=== PATIENT | female | born 1940 | race Caucasian/White ===

== ENCOUNTER → 2016-08-22 | Outpatient (CLI) | payer OTHER ==
--- NOTE | 2016-08-23 08:53 | DX ---
DEXA Bone Mineral Densitometry Clinical Indications: 75-year-old female who had a hysterectomy at age 49, at which time she went t hrough menopause. Her mother had osteoporosis, and the patient was treated with Fosamax between 1995 and 2007. She takes supplementary vitamin D and a multivitamin, and exercises by biking. Evaluate f or estrogen deficiency, and screen for osteoporosis. ICD 10 Diagnostic Code: Z13.820. Comparison: The patient does not remember where she had her prior DEXA scan. Technique: Bone Mineral Densitometry (BMD) by Dual Energy X-Ray Absorptiometry (DEXA) was performed utilizing the [employer] scanner. The lumbar spine was evaluated in the AP projection. Both hip s and the left forearm were evaluated in the AP projection. Vertebral fracture assessment was also p erformed. A FRAX score was calculated. AP Lumbar Spine: The L1, L2, L3 and L4 vertebral bodies were evaluated. BMD: 1.196 gm/cm2 T-score: 0.0 SD Z-score: 1.4 SD AP Left Hip: Femoral Neck BMD: 0.891 gm/cm2 T-score: -1.1 SD* Z-score: 0.7 SD AP Right Hip: Femoral Neck BMD: 0.920 gm/cm2 T-score: -0.8 SD Z-score: 0.9 SD AP Left Forearm, /: BMD: 0.776 gm/cm2 T-score: -1.1 SD* Z-score: 1.3 SD Vertebral Fracture Assessment: There is no significant fracture deformity. Fracture Score: The 10 year probability for any major osteoporotic fracture 16.1%, and for a hip fra cture 7.1%. Conclusion: Considering the lowest measured site, the patient is mildly osteopenic* (low bone minera l density).. Any bone loss in this patient is probably related to aging or estrogen deficiency. Recommendations: To prevent osteoporosis and to promote bone density, consider the following recommendations: 1. Pursue a regular regimen of weightbearing and muscle-strengthening exercises in order to reduce the risk of falls and fracture (as tolerated by the patient's general medical condition). 2. Ensure that total daily calcium intake is at least 1500 mg (diet plus supplements). 3. Check serum hydroxy vitamin D3 (normal >30ng/ml). 4. Ensure daily intake of vitamin D is 800 international units. 5. Consider follow up DEXA scan in two years to assess the rate of bone loss in this patient.
== END ==
LOC: BRMIMAGING 08:38
PROVIDERS: ATTEND Internal Medicine
DX: Z13.820 Encounter for screening for osteoporosis (principal); M85.80 Other specified disorders of bone density and structure, unspecified site; Z82.62 Family history of osteoporosis; Z90.710 Acquired absence of both cervix and uterus

== ENCOUNTER 2017-05-05 06:52 | Observation (INO) | payer OTHER ==
[2017-05-05] MEDS ORDERED: DIAZEPAM 5 MG TAB PO ONE (06:58)
[2017-05-05] MEDS ORDERED: NS 1,000 ML IV ONE (06:58)
[2017-05-05] MEDS ORDERED: BACITRACIN IRRIGATION/NS 50,000 UNITS/1,000 ML BTL IRR ONE (06:58)
[2017-05-05] MEDS ORDERED: diphenhydrAMINE 25 MG CAP PO ONE (06:58)
--- NOTE | 2017-05-05 07:20 | CPEKG ---
Heart Rate: 50 RR Interval: 1200 P-R Interval: 216 QRSD Interval: 144 QT Interval: 484 QTC Interval: 442 P [place]: 38 QRS [place]: -40 EKG Severity - ABNORMAL ECG - EKG Impression: SINUS BRADYCARDIA EKG Impression: ATRIAL PREMATURE COMPLEX EKG Impression: RBBB AND LAFB EKG Impression: PROBABLE LVH WITH SECONDARY REPOL ABNRM Electronically Signed By: Ravindra Jackson 05-May-2017 10:57:28
[2017-05-05 07:35] LABS: PLATELET COUNT 247 10^3/uL (150-400)
[2017-05-05 07:44] LABS: INR 2.23 (0.83-1.16); PROTIME(PATIENT) 24.9 SEC (12.0-15.0)
[2017-05-05] MEDS ORDERED: VANCOMYCIN HCL/NORMAL SALINE 250 ML IV SCH (08:00)
--- NOTE | 2017-05-05 09:35 | PDPROPOC ---
Sedation Plan of Care Sedation Plan of Care: vital signs stable, mental status noted, patient educated of risks, benefits, alternatives, patient can tolerate sedation ASA Classification: ASA 2 Planned drugs: fentanyl, midazolam Mallampati Score: Class 1 Mallampati Reference Image: Patient passed 3-3-2 rule?: Yes
--- NOTE | 2017-05-05 09:35 | PDGENHP ---
History and Physical History and Physical: No changes in the patient's status between yesterday and today. Risks and benefits of the procedure were discussed yesterday and today. INR noted to be elevated (in setting of mechanical aortic valve), and we would like to proceed with anticoagulation on board. Consents have been signed.
[2017-05-05] MEDS ORDERED: LIDOCAINE 1% 300 MG/30 ML SDV ONE (09:42)
[2017-05-05] MEDS ORDERED: MIDAZOLAM 2 MG/2 ML VIAL ONE ×4 (09:43→11:18)
[2017-05-05] MEDS ORDERED: fentaNYL 100 MCG/2 ML INJ ONE ×2 (09:43→11:52)
[2017-05-05] MEDS ORDERED: LIDO/EPI 1% **for epidural** 30 ML SDV ONE ×2 (09:43→11:46)
[2017-05-05] MEDS ORDERED: BUPIVACAINE 0.5% 30 ML SDV ONE (09:44)
--- NOTE | 2017-05-05 14:07 | EPPROC ---
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 Hence it was decided to place dual chamber pacemaker. PROCEDURE NOTE: Patient presented to the cardiac catheterization laboratory in a fasting, post absorptive state. Cardiac geophysical laboratory chief nurse administered moderate sedation. The left infraclavicular area was prepped and draped in the usual sterile fashion. Lidocaine plus bupivacaine was used for local anesthesia. Left subclavian venography was performed by injection of iodinated contrast into the left antecubital vein. This was done to assure patency of the vein and also to assess for any anatomical aberrations. Dr Dupree attempted left subclavian acces but due to anatomic variation it could not be located and subclavian access was not obtainable. Using a combination of blunt and sharp dissection and electrocautery, the dissection was carried down to the prepectoral fascia. All bleeding was controlled with electrocautery. Fluoroscopy was utilized during the entire procedure for venous access and placement of the leads. Using the usual technique, left cephalic vein was accessed and a glidewire was placed. Through this initially a long 8F and later a long 7F sheath was passed. Placement of the guidewires into the venous system was confirmed by low -pressure blood return and also by visualizing the guidewires advancing into the inferior vena cava. A purse string suture was applied around the guidewires. An active fixation ventricular lead was advanced into the right ventricular apex and screwed in place. An active fixation atrial lead was advanced into the right atrial appendage and screwed in place. The peel away sheaths were removed. Pacing thresholds, sensing parameters and lead impedances were measured. There was no diaphragmatic stimulation at maximum output. The leads were sutured to the prepectoral fascia with 3 nonabsorbable sutures each. The pocket was created and it was flushed using antibiotic solution. It was inspected for any bleeding. The leads were attached to the pacemaker securely. The pacemaker was inserted into the pocket and secured in place with a nonabsorbable suture. Fluoroscopy was performed in [place] and [place] planes to verify right-sided placement of the leads. Also fluoroscopy of the pacemaker pocket was performed. The pacemaker pocket was closed in 3 layers with absorbable vicryl sutures. Steristrips were placed. Appropriate dressing was applied. The patient left the cardiac catheterization laboratory in stable condition. Serial Numbers: Device: St Louie Assurity MRI SN [id number] Atrial Lead: St Louie 8TC SN [id number] Ventricular Lead: [employer] Louie 8TC SN [id number] Stimulation Thresholds & Impedance Measurements: Atrial Lead 2.2mV, 0.4@0.5ms, 415Ohms Ventricular Lead 8.2mV, 0.5@0.5ms, 700Ohms Bhargav Pacing Parameters Pacing mode: DDD Lower rate: 60 Upper tracking rate: 130 Upper sensor rate: 130
--- NOTE | 2017-05-05 14:07 | EPPROC ---
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 Hence it was decided to place dual chamber pacemaker. PROCEDURE NOTE: Patient presented to the cardiac catheterization laboratory in a fasting, post absorptive state. Cardiac lab director nurse administered moderate sedation. The left infraclavicular area was prepped and draped in the usual sterile fashion. Lidocaine plus bupivacaine was used for local anesthesia. Left subclavian venography was performed by injection of iodinated contrast into the left antecubital vein. This was done to assure patency of the vein and also to assess for any anatomical aberrations. Dr Dupree attempted left subclavian acces but due to anatomic variation it could not be located and subclavian access was not obtainable. Using a combination of blunt and sharp dissection and electrocautery, the dissection was carried down to the prepectoral fascia. All bleeding was controlled with electrocautery. Fluoroscopy was utilized during the entire procedure for venous access and placement of the leads. Using the usual technique, left cephalic vein was accessed and a glidewire was placed. Through this initially a long 8F and later a long 7F sheath was passed. Placement of the guidewires into the venous system was confirmed by low -pressure blood return and also by visualizing the guidewires advancing into the inferior vena cava. A purse string suture was applied around the guidewires. An active fixation ventricular lead was advanced into the right ventricular apex and screwed in place. An active fixation atrial lead was advanced into the right atrial appendage and screwed in place. The peel away sheaths were removed. Pacing thresholds, sensing parameters and lead impedances were measured. There was no diaphragmatic stimulation at maximum output. The leads were sutured to the prepectoral fascia with 3 nonabsorbable sutures each. The pocket was created and it was flushed using antibiotic solution. It was inspected for any bleeding. The leads were attached to the pacemaker securely. The pacemaker was inserted into the pocket and secured in place with a nonabsorbable suture. Fluoroscopy was performed in [place] and [place] planes to verify right-sided placement of the leads. Also fluoroscopy of the pacemaker pocket was performed. The pacemaker pocket was closed in 3 layers with absorbable vicryl sutures. Steristrips were placed. Appropriate dressing was applied. The patient left the cardiac catheterization laboratory in stable condition. Serial Numbers: Device: St Louie Assurity MRI SN [id number] Atrial Lead: St Louie 8TC SN [id number] Ventricular Lead: [employer] Louie 8TC SN [id number] Stimulation Thresholds & Impedance Measurements: Atrial Lead 2.2mV, 0.4@0.5ms, 415Ohms Ventricular Lead 8.2mV, 0.5@0.5ms, 700Ohms Bhargav Pacing Parameters Pacing mode: DDD Lower rate: 60 Upper tracking rate: 130 Upper sensor rate: 130
--- NOTE | 2017-05-05 14:07 | EPPROC ---
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 Hence it was decided to place dual chamber pacemaker. PROCEDURE NOTE: Patient presented to the cardiac catheterization laboratory in a fasting, post absorptive state. Cardiac chemical laboratory assistant nurse administered moderate sedation. The left infraclavicular area was prepped and draped in the usual sterile fashion. Lidocaine plus bupivacaine was used for local anesthesia. Left subclavian venography was performed by injection of iodinated contrast into the left antecubital vein. This was done to assure patency of the vein and also to assess for any anatomical aberrations. Dr Dupree attempted left subclavian acces but due to anatomic variation it could not be located and subclavian access was not obtainable. Using a combination of blunt and sharp dissection and electrocautery, the dissection was carried down to the prepectoral fascia. All bleeding was controlled with electrocautery. Fluoroscopy was utilized during the entire procedure for venous access and placement of the leads. Using the usual technique, left cephalic vein was accessed and a glidewire was placed. Through this initially a long 8F and later a long 7F sheath was passed. Placement of the guidewires into the venous system was confirmed by low -pressure blood return and also by visualizing the guidewires advancing into the inferior vena cava. A purse string suture was applied around the guidewires. An active fixation ventricular lead was advanced into the right ventricular apex and screwed in place. An active fixation atrial lead was advanced into the right atrial appendage and screwed in place. The peel away sheaths were removed. Pacing thresholds, sensing parameters and lead impedances were measured. There was no diaphragmatic stimulation at maximum output. The leads were sutured to the prepectoral fascia with 3 nonabsorbable sutures each. The pocket was created and it was flushed using antibiotic solution. It was inspected for any bleeding. The leads were attached to the pacemaker securely. The pacemaker was inserted into the pocket and secured in place with a nonabsorbable suture. Fluoroscopy was performed in [place] and [place] planes to verify right-sided placement of the leads. Also fluoroscopy of the pacemaker pocket was performed. The pacemaker pocket was closed in 3 layers with absorbable vicryl sutures. Steristrips were placed. Appropriate dressing was applied. The patient left the cardiac catheterization laboratory in stable condition. Serial Numbers: Device: St Louie Assurity MRI SN [id number] Atrial Lead: St Louie 8TC SN [id number] Ventricular Lead: St Louie 8TC SN [id number] Stimulation Thresholds & Impedance Measurements: Atrial Lead 2.2mV, 0.4@0.5ms, 415Ohms Ventricular Lead 8.2mV, 0.5@0.5ms, 700Ohms Bhargav Pacing Parameters Pacing mode: DDD Lower rate: 60 Upper tracking rate: 130 Upper sensor rate: 130
--- NOTE | 2017-05-05 14:21 | CPEKG ---
Heart Rate: 72 RR Interval: 833 P-R Interval: 232 QRSD Interval: 144 QT Interval: 500 QTC Interval: 548 QRS [place]: -39 T Wave [place]: -9 EKG Severity - ABNORMAL ECG - EKG Impression: ATRIAL-PACED COMPLEXES -- New since May 05, 2017, 7:18 EKG Impression: FIRST DEGREE AV BLOCK EKG Impression: RBBB AND LAFB EKG Impression: PROBABLE LVH WITH SECONDARY REPOL ABNRM Electronically Signed By: Ravindra Jackson 06-May-2017 07:57:04
--- NOTE | 2017-05-05 14:21 | CPEKG ---
Heart Rate: 72 RR Interval: 833 P-R Interval: 232 QRSD Interval: 144 QT Interval: 500 QTC Interval: 548 QRS [place]: -39 T Wave [place]: -9 EKG Severity - ABNORMAL ECG - EKG Impression: ATRIAL-PACED COMPLEXES -- New since May 05, 2017, 7:18 EKG Impression: FIRST DEGREE AV BLOCK EKG Impression: RBBB AND LAFB EKG Impression: PROBABLE LVH WITH SECONDARY REPOL ABNRM Electronically Signed By: Ravindra Jackson 06-May-2017 07:57:04
[2017-05-05] MEDS: HYDROCODONE/APAP 5/325 TAB PO PRN ×2 (14:48→22:16)
[2017-05-05] MEDS ORDERED: WARFARIN SODIUM 2.5 MG TAB PO SCH (21:00)
[2017-05-05] MEDS ORDERED: ATORVASTATIN CALCIUM 20 MG TAB PO SCH (21:00)
[2017-05-05] MEDS ORDERED: METOPROLOL SUCCINATE XR 25 MG TAB PO SCH (21:00)
[2017-05-06 04:37] VITALS: TEMP 97.9
[2017-05-06 07:08] VITALS: RESP 20
[2017-05-06] MEDS: HYDROCODONE/APAP 5/325 TAB PO PRN (07:32)
[2017-05-06 07:47] LABS: PLATELET COUNT 224 10^3/uL (150-400)
--- NOTE | 2017-05-06 08:19 | CPEKG ---
Heart Rate: 60 RR Interval: 1000 P-R Interval: 182 QRSD Interval: 142 QT Interval: 472 QTC Interval: 472 QRS [place]: -31 T Wave [place]: 87 EKG Severity - ABNORMAL ECG - EKG Impression: ATRIAL-PACED RHYTHM EKG Impression: RBBB AND LAFB EKG Impression: AGREE WITH ABOVE. NO SIGNIFICANT CHANGE FROM MAY 05, 2017 Electronically Signed By: Ravindra Jackson 06-May-2017 08:36:21
--- NOTE | 2017-05-06 08:19 | CPEKG ---
Heart Rate: 60 RR Interval: 1000 P-R Interval: 182 QRSD Interval: 142 QT Interval: 472 QTC Interval: 472 QRS [place]: -31 T Wave [place]: 87 EKG Severity - ABNORMAL ECG - EKG Impression: ATRIAL-PACED RHYTHM EKG Impression: RBBB AND LAFB EKG Impression: AGREE WITH ABOVE. NO SIGNIFICANT CHANGE FROM MAY 05, 2017 Electronically Signed By: Ravindra Jackson 06-May-2017 08:36:21
[2017-05-06] MEDS ORDERED: MULTIVITAMINS 1 EACH TAB PO SCH (09:00)
[2017-05-06] MEDS ORDERED: CHOLECALCIFEROL VIT D3 2,000 UNITS TAB/CAP PO SCH (09:00)
[2017-05-06] MEDS ORDERED: LOSARTAN/HCTZ 50/12.5 1 TAB PO SCH (09:00)
[2017-05-06] MEDS ORDERED: Herbals/Supplements -Info Only PO SCH (09:00)
--- NOTE | 2017-05-06 09:36 | PDHOMEO2F ---
Home Oxygen Face to Face Home Orders: I certify that a physician or a nurse practitioner or physician's occupational therapy assistant has had a mqwj-px-drlw encounter with this patient on the date of this order due to the diagnosis listed, which relates to the primary reason the patient requires home oxygen. Alternative treatments have been tried, or considered, and deemed ineffective. It is anticipated that supplemental oxygen will result in improvement with treatment. Home oxygen qualifying diagnosis: hypoxia SpO2 on room air (%): 80 Frequency of home oxygen needed: continuous Home oxygen liters per minute: 2L Home oxygen delivery device: nasal cannula Concentrator: Yes E-tanks for mobility and back up: Yes If ordering portable O2, is the patient mobile in the home?: Yes I certify that, based on these findings, the home oxygen is medically necessary for this patient for the following length of time. Length of time home oxygen needed: 99 years
--- NOTE | 2017-05-06 09:36 | PDHOMEO2F ---
Home Oxygen Face to Face Home Orders: I certify that a physician or a nurse practitioner or physician's assistant facility manager has had a htri-vt-jqde encounter with this patient on the date of this order due to the diagnosis listed, which relates to the primary reason the patient requires home oxygen. Alternative treatments have been tried, or considered, and deemed ineffective. It is anticipated that supplemental oxygen will result in improvement with treatment. Home oxygen qualifying diagnosis: hypoxia SpO2 on room air (%): 80 Frequency of home oxygen needed: continuous Home oxygen liters per minute: 2L Home oxygen delivery device: nasal cannula Concentrator: Yes E-tanks for mobility and back up: Yes If ordering portable O2, is the patient mobile in the home?: Yes I certify that, based on these findings, the home oxygen is medically necessary for this patient for the following length of time. Length of time home oxygen needed: 99 years
--- NOTE | 2017-05-06 09:36 | PDHOMEO2F ---
Home Oxygen Face to Face Home Orders: I certify that a physician or a nurse practitioner or physician's field research assistant has had a frje-lc-sbqu encounter with this patient on the date of this order due to the diagnosis listed, which relates to the primary reason the patient requires home oxygen. Alternative treatments have been tried, or considered, and deemed ineffective. It is anticipated that supplemental oxygen will result in improvement with treatment. Home oxygen qualifying diagnosis: hypoxia SpO2 on room air (%): 80 Frequency of home oxygen needed: continuous Home oxygen liters per minute: 2L Home oxygen delivery device: nasal cannula Concentrator: Yes E-tanks for mobility and back up: Yes If ordering portable O2, is the patient mobile in the home?: Yes I certify that, based on these findings, the home oxygen is medically necessary for this patient for the following length of time. Length of time home oxygen needed: 99 years
--- NOTE | 2017-05-06 09:51 | PDIAF ---
- Diagnosis Diagnosis: s/p pacemaker Code Status: Full Code - Medication Management Discharge Medications: Medications to Continue on Transfer Acetaminophen [Tylenol 325mg (*)] 325 - 650 mg PO Q8HRS PRN 05/05/17 [Last Taken Unknown] Atorvastatin Calcium [Lipitor 20 mg (*)] 20 mg PO HS 05/05/17 [Last Taken ] Cholecalciferol Vit D3 [Vitamin D3 2000 units tab (OTC)] 2,000 units PO DAILY [Last Taken Unknown] Herbals/Supplements -Info Only 1 ea PO DAILY 05/05/17 [Last Taken Unknown] Losartan/Hydrochlorothiazide [Hyzaar 100-25 Tablet] 1 each PO DAILY 05/05/17 [ Last Taken 05/04/17] Metoprolol Succinate Xr [Toprol Xl 25 mg (*)] 12.5 mg PO HS 05/05/17 [Last Taken 05/04/17] Multivitamins [Multivitamin (*)] 1 each PO DAILY 05/05/17 [Last Taken Unknown] Warfarin Sodium [Coumadin 2.5MG (*)] 1.25 mg PO SA@21 05/05/17 [Last Taken 04/29] Warfarin Sodium [Coumadin 2.5MG (*)] 2.5 mg PO SUMOTUWETHFR@21 05/05/17 [Last Taken 05/04/17] amLODIPine BESYLATE [Norvasc 10 mg (*)] 10 mg PO HS 05/05/17 [Last Taken ] Discharge Medications: Refer to the Discharge Home Medication list for PRN reason. PICC Care - Routine: N/A - Orders Services needed: Physical Therapy, Occupational Therapy Oxygen: continuous at 2L Diet Recommendation: cardiac -low fat low salt Diet Texture: Regular Texture Diet [place]: Not applicable - Follow Up Care Current Providers and Referrals: Venus Maynard MD [Primary Care Provider] - Johnathan Dupree MD [Medical Doctor] - 05/12/17 11:30 am
--- NOTE | 2017-05-06 10:37 | GDS ---
[f rep st] DISCHARGE SUMMARY DISCHARGE DIAGNOSES: 1. Bradycardia with greater than 5 second pauses, status post [place] [employer]ie dual-chamber pacemaker. 2. Hypertension. 3. Hyperlipidemia. 4. Coarctation of the aorta, status post two surgeries in 196 and again in 2000. 5. Status post mechanical aortic valve replacement. HOSPITAL COURSE: For detailed H and P, please see prior dictation. Briefly, the patient is a 76-year-old female, who had a Holter placed approximately a year ago, which showed a positive 3.6 seconds. She had a followup event monitor and was found to have pauses of gre ater than 5 seconds. She denied any chest pain, shortness of breath, lightheadedness, dizziness, syn cope, or presyncope. Due to the significant pauses, the patient was electively admitted to the [facility] for pacemaker placement. She had a dual [employer] Louie pacemaker placed by Dr. Ortez on 05/06/2017. The following morning, the patient denied any significant discomfort over the pacer site. Her device was interrogated and working properly. Her EKG at the time of discharge, showed a paced rhythm. e chest x-ray was negative for pneumothorax. This morning she was hypoxic, with her oxygen saturatio ns dropping to 80% with ambulation. She does use CPAP at night time with bleed in oxygen, and has po rtable O2 tanks at home. She will need to be started on continuous oxygen. Occupational therapy wanda luated the patient and felt that she should use her walker for ambulation. Also they recommended edward e OT and PT evaluation. 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 Her blood pressure medications are on hold today. DISCHARGE MEDICATIONS: Her medications are unchanged. She will continue Coumadin 2.5 mg daily, and 1.25 mg on Monday, metoprolol 12.5 mg at nighttime, Lipitor 20 mg daily. Hyzaar 100/25 mg daily an d amlodipine 10 mg daily. Herbal supplement daily, vitamin D3 daily, multivitamin daily. Tylenol p. r.n. PLAN: The patient is currently stable and ready for discharge home. She was slightly unstable on he r feet this morning, and therefore, occupational therapy evaluated her. They recommended she use her walker full-time. Also home PT, OT evaluation has been ordered. She was also hypoxic at rest witho ut any evidence of pneumothorax or congestive heart failure on chest x-ray. She will be discharged h ome with continuous oxygen. She has been given pacer precautions. She feels stable and ready to be discharged home. She will resume her medications as scheduled. She will follow up in our office on at 11:30, for pacer interrogation and wound check. Her INR at the time of discharge wa s 2.23. She will resume current Coumadin dosing. Greater than 30 minutes was spent coordinating the patient's care today. /[id number]/MODL
[2017-05-06 10:50] VITALS: BP 182/71; PULSE 60; O2SAT 93
--- NOTE | 2017-05-06 14:14 | ASDISCHSUM ---
Discharge Information Plan Status:Home with No Needs Medically Cleared to Leave: Discharge Date:05/06/2017 12:33 PM CM D/C Disposition:Home, Routine, Self-Care ADT D/C Disposition:Home Health Service Projected Discharge Date:05/06/2017 11:00 AM Transportation at D/C:Family Discharge Delay Reason: Follow-Up Date:05/06/2017 11:00 AM Discharge Slot: Final Diagnosis: Placement Information Referral Type:*Home Health Care Services Referral ID:[id number] Provider Name: Address 1: Phone Number: Address 2: Fax Number: City: Selection Factors: State: Patient Contact Information Contact Name:KRISHNA Relationship:Son Address: Work Phone: City: [facility] [place] Phone: [facility] Code: Email: Financial Information Financial Class:Medicare Advantage Plans Primary Plan Desc:[employer] MEDICARE ADV Primary Plan Number:[id number] Secondary Plan Desc: Secondary Plan Number: Assessment Information [facility] CM Progress Note CM Note CM Note Notes: Today Pt. to be d/c'ed. Yana Stout PA-C wrote order for homecare discharge - PT and OT. Pt. w/ [employer] Medicare Advantage Plan. Pt. open to any homecare agency that is in-network for her insurance. SWer made [employer] referral to [facility]. [facility] ran in-network benefits and found that homecare only covered at 60% until Pt. hits $10,000 deductible. Pt. was d/c'ed before SWer had the above information. SWer called Pt. and let her know about costs. Pt. elected not to have homecare. SWer let [facility] know and also left [facility] for Yana Stout PA-C about Pt. choosing not to have homecare due to costs. Pt. d/c'ed independently today to her son. Date Signed: 05/06/2017 02:13 PM Electronically Signed By:Meghan Rahman LCSW Intervention Information
--- NOTE | 2017-05-06 14:14 | ASDISCHSUM ---
Discharge Information Plan Status:Home with No Needs Medically Cleared to Leave: Discharge Date:05/06/2017 12:33 PM CM D/C Disposition:Home, Routine, Self-Care ADT D/C Disposition:Home Health Service Projected Discharge Date:05/06/2017 11:00 AM Transportation at D/C:Family Discharge Delay Reason: Follow-Up Date:05/06/2017 11:00 AM Discharge Slot: Final Diagnosis: Placement Information Referral Type:*Home Health Care Services Referral ID:[id number] Provider Name: Address 1: Phone Number: Address 2: Fax Number: City: Selection Factors: State: Patient Contact Information Contact Name:KRISHNA Relationship:Son Address: Work Phone: City: [facility] Phone: [facility] Code: Email: Financial Information Financial Class:Medicare Advantage Plans Primary Plan Desc:[employer] MEDICARE ADV Primary Plan Number:[id number] Secondary Plan Desc: Secondary Plan Number: Assessment Information [facility] CM Progress Note CM Note CM Note Notes: Today Pt. to be d/c'ed. Yana Stout PA-C wrote order for homecare discharge - PT and OT. Pt. w/ [employer] Medicare Advantage Plan. Pt. open to any homecare agency that is in-network for her insurance. SWer made [employer] referral to [facility]. [facility] ran in-network benefits and found that homecare only covered at 60% until Pt. hits $10,000 deductible. Pt. was d/c'ed before SWer had the above information. SWer called Pt. and let her know about costs. Pt. elected not to have homecare. SWer let [facility] know and [place] [facility] [place] Y[place] Stout PA-C about Pt. choosing not to have homecare due to costs. Pt. d/c'ed independently today to her son. Date Signed: 05/06/2017 02:13 PM Electronically Signed By:Meghan Rahman LCSW Intervention Information
--- NOTE | 2017-05-06 14:14 | ASDISCHSUM ---
Discharge Information Plan Status:Home with No Needs Medically Cleared to Leave: Discharge Date:05/06/2017 12:33 PM CM D/C Disposition:Home, Routine, Self-Care ADT D/C Disposition:Home Health Service Projected Discharge Date:05/06/2017 11:00 AM Transportation at D/C:Family Discharge Delay Reason: Follow-Up Date:05/06/2017 11:00 AM Discharge Slot: Final Diagnosis: Placement Information Referral Type:*Home Health Care Services Referral ID:[id number] Provider Name: Address 1: Phone Number: Address 2: Fax Number: City: Selection Factors: State: Patient Contact Information Contact Name:KRISHNA Relationship:Son Address: Work Phone: City: [facility] Phone: [email or web address] Code: Email: Financial Information Financial Class:Medicare Advantage Plans Primary Plan Desc:[employer] MEDICARE ADV Primary Plan Number:[id number] Secondary Plan Desc: Secondary Plan Number: Assessment Information [facility] CM Progress Note CM Note CM Note Notes: Today Pt. to be d/c'ed. Yana Stout PA-C wrote order for homecare discharge - PT and OT. Pt. w/ [employer] Medicare Advantage Plan. Pt. open to any homecare agency that is in-network for her insurance. SWer made [employer] referral to [facility]. [facility] ran in-network benefits and found that homecare only covered at 60% until Pt. hits $10,000 deductible. Pt. was d/c'ed before SWer had the above information. SWer called Pt. and let her know about costs. Pt. elected not to have homecare. SWer let [facility] know and also left [facility] for Yana Stout PA-C about Pt. choosing not to have homecare due to costs. Pt. d/c'ed independently today to her son. Date Signed: 05/06/2017 02:13 PM Electronically Signed By:Meghan Rahman LCSW Intervention Information
[2017-05-06] MEDS ORDERED: WARFARIN SODIUM 2.5 MG TAB PO SCH (21:00)
== END 2017-05-06 12:33 | disposition home health service (06) ==
LOC: FCATH 06:52 → F2W 13:17
PROVIDERS: ADMIT Internal Medicine Cardiovascular Disease; ATTEND Internal Medicine Cardiovascular Disease
PROC: B5171ZA Fluoroscopy of Left Subclavian Vein using Low Osmolar Contrast, Guidance (ICD-10-PCS; principal; 2017-05-05)
PROC: 02H63JZ Insertion of Pacemaker Lead into Right Atrium, Percutaneous Approach (ICD-10-PCS; principal; 2017-05-05)
PROC: 0JH606Z Insertion of Pacemaker, Dual Chamber into Chest Subcutaneous Tissue and Fascia, Open Approach (ICD-10-PCS; principal; 2017-05-05)
PROC: 02HK3JZ Insertion of Pacemaker Lead into Right Ventricle, Percutaneous Approach (ICD-10-PCS; principal; 2017-05-05)
CPT/HCPCS: 33208; 71010; 71020; 93005; 97161; 97166; C1769; C1785; C1898; G8978; G8979; G8980; J2250; J3010; J3370